=== PATIENT | female | born 1985 | race Caucasian/White ===

== ENCOUNTER → 2018-12-24 | Outpatient (CLI) | payer OTHER ==
[2014-04-04 11:50] VITALS: BP 120/82
[~2018-12-24] MED LIST: BIRTH CONTROL
[2018-12-24 17:51] LABS: D-DIMER 0.1 mg/L FEU (0.15-0.50)
== END ==
LOC: LAB 16:42
PROVIDERS: Physician Assistant
DX: M79.606 Pain in leg, unspecified (principal)

== ENCOUNTER → 2019-08-31 | Outpatient (CLI) | payer OTHER ==
[2014-04-04 11:50] VITALS: BP 120/82
== END ==
LOC: LAB 11:33
DX: O26.859 Spotting complicating pregnancy, unspecified trimester (principal)

== ENCOUNTER → 2019-10-10 | Outpatient (CLI) | payer OTHER ==
[2014-04-04 11:50] VITALS: BP 120/82
== END ==
LOC: LAB 12:40
DX: Z20.828 Contact with and (suspected) exposure to other viral communicable diseases (principal)

== ENCOUNTER → 2020-03-25 | Outpatient (CLI) | payer OTHER ==
[2014-04-04 11:50] VITALS: BP 120/82
== END ==
LOC: LAB 10:11
DX: Z20.828 Contact with and (suspected) exposure to other viral communicable diseases (principal)

== ENCOUNTER 2021-10-15 11:55 | Emergency (ER) | payer OTHER ==
[~2021-10-15] VITALS: Ht 170.2 cm; Wt 82.1 kg
[2021-10-15 12:46] LABS: HEMATOCRIT 37.7 % (37.0-47.0); HEMOGLOBIN 12.3 g/dL (12.5-16.0); MEAN CELL VOLUME 90 fl (78-100); MEAN CORPUSCULAR HEMOGLOBIN 29 pg (27-31); MEAN CORPUSCULAR HGB CONC 33 g/dL (33-37); MEAN PLATELET VOLUME 10.3 fl (7.4-10.4); PLATELET COUNT 206 K/mm3 (130-400); RED BLOOD COUNT 4.21 M/mm3 (4.10-5.30); RED CELL DISTRIBUTION WIDTH 12.6 % (11.5-14.5); WHITE BLOOD COUNT 7.3 K/mm3 (4.8-10.8)
[2021-10-15 12:57] LABS: ALBUMIN 4.3 g/dL (3.5-5.0); POTASSIUM 3.6 mmol/L (3.5-5.1)
[2021-10-15 12:58] LABS: CALCIUM 8.9 mg/dL (8.3-10.5)
[2021-10-15 13:00] LABS: TOTAL PROTEIN 7.4 g/dL (6.4-8.3)
[2021-10-15 13:01] LABS: TOTAL BILIRUBIN 0.4 mg/dL (0.2-1.2)
[2021-10-15 13:06] LABS: MAGNESIUM 1.62 mg/dL (1.60-2.60)
[2021-10-15 13:14] LABS: URINE APPEARANCE CLEAR; URINE BILIRUBIN NEGATIVE (NEGATIVE); URINE COLOR YELLOW; URINE GLUCOSE NEGATIVE (NEGATIVE); URINE KETONE NEGATIVE (NEGATIVE); URINE NITRATE NEGATIVE (NEGATIVE); URINE PROTEIN(semi-quant) TRACE (NEGATIVE); URINE UROBILINOGEN NORMAL (NORMAL)
[2021-10-15 13:15] LABS: URINE BLOOD 250 ery/uL (NEGATIVE); URINE LEUKOCYTE ESTERASE NEGATIVE (NEGATIVE)
[2021-10-15 13:26] LABS: BAND 6 % (0-10); LYMPHOCYTE 4 % (20-51); MONOCYTE 3 % (3-10); NEUTROPHILS 87 % (42-75)
[2021-10-15 16:19] VITALS: BP 103/67
== END 2021-10-15 16:20 | disposition home or self-care (01) ==
LOC: ED 11:55
PROVIDERS: Physician Assistant
DX: B34.9 Viral infection, unspecified (principal); R79.82 Elevated C-reactive protein (CRP)
CPT/HCPCS: J1885; J7030; Q9967